=== PATIENT | female | born 1990 | race Caucasian/White ===

== ENCOUNTER 2023-12-20 05:28 | Emergency (ER) | payer OTHER, SELFPAY ==
[2023-12-20] MEDS ORDERED: Ondansetron PF 4 MG/2 ML Vial ONE (05:42)
[2023-12-20] MEDS ORDERED: Haloperidol Lactate 5 MG/ML VIAL ONE (05:57)
[2023-12-20] MEDS ORDERED: Famotidine/PF 20 mg/2ml Vial ONE (05:58)
[2023-12-20 06:12] LABS: #Eosinphils 0.1 10x3/uL (0.0-0.5); #Monocytes 0.8 10x3/uL (0.0-1.1); #Neutrophils 17.4 10x3/uL (1.5-8.4); %Basophils 0.2 % (0.0-2.0); %Eosinophils 0.6 % (0.0-6.0); %Lymphocytes 2.6 % (18.0-47.0); %Monocytes 4.4 % (0.0-10.0); %Neutrophils 91.8 % (40.0-75.0); Hematocrit 39.7 % (34.9-44.5); Hemoglobin 13.7 g/dL (12.0-15.5); Mean Corpuscular HGB CONC 34.5 g/dL (32.0-36.0); Mean Corpuscular Hemoglobin 31.4 pg (27.0-33.0); Mean Corpuscular Volume 91.1 fl (81.6-98.3); Platelet Count 376 10x3/uL (150-450); RBC Distribution Width 13.9 % (11.5-14.5); Red Blood Cell (RBC) Count 4.36 10x6/uL (3.90-5.03)
[2023-12-20 06:17] LABS: BHCG - Serum Negative (NEGATIVE); Pregs Control Background? CLEAR/WHITE (CLR/WHITE); Pregs Control Bar Appear? YES (CONTROL BAR)
[2023-12-20 06:24] LABS: Acetaminophen Less than 10 mcg/mL (10.0-30.0); Alcohol Less than 10.0 mg/dL (Less than 10); Lipase 33 U/L (8-78); Magnesium 1.7 mg/dL (1.6-2.6); Salicylate Less than 8.0 mg/dL (15.0-30.0)
[2023-12-20 06:29] LABS: ALT (SGPT) 163 U/L (8-55); AST (SGOT) 119 U/L (5-34); Albumin 3.8 g/dL (3.5-5.0); Alkaline Phosphatase 65 U/L (40-110); Anion Gap 16 mmol/L (10-20); BUN (Urea Nitrogen) 24 mg/dL (7.0-18.7); Bilirubin, Total 0.6 mg/dL (0.2-1.2); Calc. Creatinine Clearance 0 mL/min (70-130); Calcium 8.5 mg/dL (7.8-10.44); Carbon Dioxide 22 mmol/L (22-29); Chloride 106 mmol/L (98-107); Estimated GFR 106; Globulin 2.3 g/dL (2.4-3.5); Glucose 99 mg/dL (70-105); Potassium 4.6 mmol/L (3.5-5.1); Protein, Total 6.1 g/dL (6.0-8.3); Sodium 139 mmol/L (136-145)
[2023-12-20 08:03] LABS: Bilirubin Neg (Negative); Blood, Urine 50 (Negative); Clarity Clear (Clear); Glucose, Urine (Dipstick) Normal (Negative); Ketone, Urine Negative (Negative); Leukocyte Negative (Negative); Nitrite Negative (Negative); Protein, Urine (Dipstick) Negative (Neg-Trace); Specific Gravity, Urine 1.015 (1.005-1.030); Urobilinogen Normal mg/dL (Less than 2)
[2023-12-20 08:10] LABS: Amphetamine Not Detected (NotDetected); Barbiturates Screen Not Detected (NotDetected); Benzodiazepine Screen Detected (NotDetected); Cocaine Metabolite Screen Not Detected (NotDetected); Methadone Not Detected (NotDetected); Methamphetamine Not Detected (NotDetected); Opiate Screen Not Detected (NotDetected); Oxycodone Screen Not Detected (NotDetected); Phencyclidine (PCP) Not Detected (NotDetected); THC/Cannabinoid Screen Not Detected (NotDetected); Tricyclic Screen Not Detected (NotDetected)
[2023-12-20 08:22] LABS: CAUTI Indications for Culture Dysuria,urgency,freq; RBC/HPF 0-3 HPF (0-3); WBC/HPF 0-3 HPF (0-3)
[2023-12-20 08:23] LABS: Bacteria/HPF Rare-Few HPF (None Seen)
[2023-12-20 08:24] LABS: Urine Culture Reflex No No
[2023-12-20] MEDS ORDERED: Iopamidol 300 61% 100 ML VIAL FS ONE (09:50)
== END 2023-12-20 18:11 | disposition home or self-care (01) ==
LOC: CSHERS 05:28
DX: R10.13 Epigastric pain (principal); D72.829 Elevated white blood cell count, unspecified; R11.2 Nausea with vomiting, unspecified; F17.210 Nicotine dependence, cigarettes, uncomplicated
CPT/HCPCS: 74177; 80053; 80306; 80307; 81001; 83690; 83735; 84703; 85025; 96374; 96375; J1630; J2405; Q9967; S0028